=== PATIENT | male | born 1945 | race Caucasian/White ===

== ENCOUNTER 2017-03-08 08:43 | Day surgery (SDC) | payer MEDICARE, BC ==
[~2017-03-08 08:43] MED LIST: LIDOCAINE HCL 1% MPF SOL ONE; PROPOFOL 500 MG/50 ML EMU IV ONE
[2017-03-08 11:30] VITALS: BP 143/73; PULSE 63; RESP 18; TEMP 97.6; O2SAT 94
== END 2017-03-08 12:00 | disposition home or self-care (01) | DRG 951 ==
LOC: SURG 08:43
PROVIDERS: ATTEND Surgery
DX: Z12.11 Encounter for screening for malignant neoplasm of colon (principal); K57.30 Diverticulosis of large intestine without perforation or abscess without bleeding
CPT/HCPCS: G0121; J2001; J2704

== ENCOUNTER 2019-03-15 17:41 | Emergency (ER) | payer MEDICARE, BC ==
[2019-03-15] MEDS ORDERED: TDAP VACCINE 0.5 ML SUS IM ONE ×2 (18:42→18:43)
[2019-03-15] MEDS ORDERED: LIDOCAINE HCL 1% MPF 30 SOL INFIL ONE (18:44)
[2019-03-15] MEDS ORDERED: LIDOCAINE HCL 1% MPF 30 SOL ONE (18:45)
[2019-03-15] MEDS ORDERED: BACITRACIN 500 U/GM OIN TOP ONE ×2 (19:07→19:09)
[2019-03-15 19:20] VITALS: TEMP 98.1
[2019-03-15 19:27] VITALS: BP 167/77; PULSE 72; RESP 18; O2SAT 97
== END 2019-03-15 19:26 | disposition home or self-care (01) | DRG 605 ==
LOC: ED 17:41
DX: S01.411A Laceration without foreign body of right cheek and temporomandibular area, initial encounter (principal); W18.09XA Striking against other object with subsequent fall, initial encounter
CPT/HCPCS: 12011; 90471; 90715; 99284; A6402; A9270-GY; J2001